=== PATIENT | female | born 1950 | race Caucasian/White ===

== ENCOUNTER 2017-05-30 01:32 | Emergency (ER) | payer MEDICARE, BC ==
[2017-05-30 01:52] VITALS: BP 148/95
--- NOTE | 2017-05-30 02:21 | EDM.PDOC ---
ED HPI GENERAL MEDICAL PROBLEM - General Chief Complaint: Chest Pain Stated Complaint: Chest pain Time Seen by Provider: 05/30/17 02:00 Source of Information: Reports: Patient, Family, RN History Limitations: Reports: No Limitations - History of Present Illness INITIAL COMMENTS - FREE TEXT/NARRATIVE: Patient presents to ER C/O chest pain around 1200 midnight tonight which she described as tightness in chest, radiating into throat region. She denies diaphoresis, SOB or cardiac risk factors eg HTn, Diabetes, Dyslipidemia. She indicates pain was 7/10. She indicates she has taken ASA at home. 20 mins after taking ASA minimal resolution, she therefore presents to ER for treatment. Onset: Today Onset Date: 05/30/17 Onset Time: 23:40 Duration: Resolved Prior to Arrival Location: Reports: Neck, Chest Quality: Reports: Burning, Pressure Severity: Moderate Improves with: Reports: Medication, Rest Worsens with: Reports: None Associated Symptoms: Reports: Chest Pain, Weakness, Other (Change in nighttime medication from Klonopin to Trazodone). Denies: Diaphoresis Treatments INSPECTOR INSULATION: Reports: Aspirin - Related Data Allergies Allergy/AdvReac Type Severity Reaction Status Date / Time No Known Allergies Allergy Verified 05/30/17 01:47 Home Meds: Home Meds Meloxicam [Meloxicam] 15 mg PO BEDTIME 05/30/17 [History] Oxybutynin 5 mg PO DAILY 05/30/17 [History] Pantoprazole [ProTONIX] 40 mg PO DAILY 05/30/17 [History] traZODone 50 mg PO BEDTIME 05/30/17 [History] Past Medical History HEENT History: Reports: None Cardiovascular History: Reports: Other (See Below) Other Cardiovascular History: 1st degree AV block Respiratory History: Reports: None Gastrointestinal History: Reports: Chronic Constipation, GERD, Other (See Below) Other Gastrointestinal History: esophageal ulcers Genitourinary History: Reports: Urinary Incontinence Musculoskeletal History: Reports: Arthritis, Fracture Neurological History: Reports: None Psychiatric History: Reports: Anxiety, Depression - Past Surgical History HEENT Surgical History: Reports: Tonsillectomy Cardiovascular Surgical History: Reports: None GI Surgical History: Reports: Colonoscopy, EGD, Polypectomy Female Surgical History: Reports: Other (See Below) Other Female Surgeries/Procedures: rectocele Musculoskeletal Surgical History: Reports: ORIF Social & Family History - Family History Family Medical History: Noncontributory - Tobacco Use Smoking Status *Q: Never Smoker - Caffeine Use Caffeine Use: Reports: Coffee - Recreational Drug Use Recreational Drug Use: No - Living Situation & Occupation Living situation: Reports: ED ROS GENERAL - Review of Systems Review Of Systems: See Below Constitutional: Reports: No Symptoms HEENT: Reports: No Symptoms Respiratory: Reports: No Symptoms Cardiovascular: Reports: Chest Pain, Other (1' AV block per patient-no treatment ). Denies: Blood Pressure Problem, Claudication, Dyspnea on Exertion, Edema, Lightheadedness, Palpitations, Syncope Endocrine: Reports: No Symptoms GI/Abdominal: Reports: Other (GERD) : Reports: Incontinence Musculoskeletal: Reports: Neck Pain, Joint Pain Skin: Reports: No Symptoms Neurological: Reports: No Symptoms Psychiatric: Reports: Anxiety, Depression ED EXAM, GENERAL - Physical Exam Exam: See Below Exam Limited By: Other (Hesitant at this time to have labs drawn as chest pain has resolved.) General Appearance: Alert, WD/WN, No Apparent Distress, Mild Distress, Other ( Requesting to go home without workup) Eye Exam: Bilateral Eye: Normal Fundi, Normal Inspection Ears: Normal External Exam Ear Exam: Bilateral Ear: Auricle Normal Nose: Normal Inspection Throat/Mouth: Normal Inspection Head: Atraumatic, Normocephalic Neck: Normal Inspection, Supple, Non-Tender, Full Range of Motion Respiratory/Chest: No Respiratory Distress, Lungs Clear, Normal Breath Sounds, No Accessory Muscle Use, Chest Non-Tender Cardiovascular: Normal Peripheral Pulses, Regular Rate, Rhythm, No Edema, No Gallop, No JVD, No Murmur Peripheral Pulses: 2+: Dorsalis Pedis (L), Dorsalis Pedis (R) GI/Abdominal: Non-Tender (Female) Exam: Deferred Rectal (Female) Exam: Deferred Back Exam: Full Range of Motion Extremities: Normal Inspection, Normal Range of Motion Neurological: Alert, Oriented, Normal Cognition, Normal Gait, No Motor/Sensory Deficits Psychiatric: Normal Affect, Anxious Skin Exam: Warm, Dry, Intact, Normal Color, No Rash Lymphatic: No Adenopathy Course - Vital Signs Last Recorded V/S: Last Vital Signs Temp 35.2 C 05/30/17 01:48 Pulse 81 05/30/17 01:48 Resp 16 05/30/17 01:48 BP 148/95 H 05/30/17 01:48 Pulse Ox 100 05/30/17 01:48 - Orders/Labs/Meds Orders: Active Orders 24 hr Category Date Time Status EKG Documentation Completion [RC] STAT Care 05/30/17 02:01 Active BASIC METABOLIC PANEL,BMP [CHEM] Stat Lab 05/30/17 02:02 Ordered CREATINE KINASE,CK [CHEM] Stat Lab 05/30/17 02:02 Ordered INR,PT,PROTHROMBIN TIME [COAG] Stat Lab 05/30/17 02:02 Ordered LACTATE DEHYDROGENASE,LDH [CHEM] Stat Lab 05/30/17 02:02 Ordered PTT,PARTIAL THROMBOPLSTIN TIME [COAG] Stat Lab 05/30/17 02:02 Ordered TROPONIN I [CHEM] Stat Lab 05/30/17 02:02 Ordered Labs: Laboratory Tests 05/30/17 Range/Units 02:05 WBC 4.6 L (5.0-10.0) 10^3/uL RBC 4.32 (4.00-5.50) 10^6/uL Hgb 13.2 (12.0-16.0) g/dL Hct 39.8 (37.0-47.0) % MCV 92.1 (82.0-94.0) fL MCH 30.6 (27.0-32.0) pg MCHC 33.2 (33.0-38.0) g/dL RDW Coeff of Charito 12.8 (11.0-15.0) % Plt Count 264 (150-400) 10^3/uL Neut % (Auto) 35.4 (35-85) % Lymph % (Auto) 51.6 (10-55) % Polk % (Auto) 10.2 (0-16) % Eos % (Auto) 2.4 (0-5) % Baso % (Auto) 0.4 (0-3) % Neut # (Auto) 1.63 L (1.80-7.00) 10^3/uL Lymph # (Auto) 2.38 (1.00-4.80) 10^3/uL Polk # (Auto) 0.47 (0.00-0.80) 10^3/uL Eos # (Auto) 0.11 (0.00-0.45) 10^3/uL Baso # (Auto) 0.02 10^3/uL Departure - Departure Time of Disposition: 02:33 Disposition: Home, Self-Care 01 Condition: Good Clinical Impression: Atypical chest pain, Anxiety, Chest pain Forms: ED Department Discharge - Problem List & Annotations (1) Anxiety SNOMED Code(s): 61113831 Code(s): F41.9 - ANXIETY DISORDER, UNSPECIFIED Status: Acute (2) Chest pain SNOMED Code(s): 69742855 Code(s): R07.9 - CHEST PAIN, UNSPECIFIED Status: Acute Priority: High Qualifiers: Ischemic chest pain type: unspecified angina pectoris type - Problem List Review Problem List Initiated/Reviewed/Updated: Yes - My Orders Last 24 Hours: My Active Orders 05/30/17 02:01 EKG Documentation Completion [RC] STAT 05/30/17 02:02 BASIC METABOLIC PANEL,BMP [CHEM] Stat CREATINE KINASE,CK [CHEM] Stat INR,PT,PROTHROMBIN TIME [COAG] Stat LACTATE DEHYDROGENASE,LDH [CHEM] Stat PTT,PARTIAL THROMBOPLSTIN TIME [COAG] Stat TROPONIN I [CHEM] Stat - Assessment/Plan Last 24 Hours: My Active Orders 05/30/17 02:01 EKG Documentation Completion [RC] STAT 05/30/17 02:02 BASIC METABOLIC PANEL,BMP [CHEM] Stat CREATINE KINASE,CK [CHEM] Stat INR,PT,PROTHROMBIN TIME [COAG] Stat LACTATE DEHYDROGENASE,LDH [CHEM] Stat PTT,PARTIAL THROMBOPLSTIN TIME [COAG] Stat TROPONIN I [CHEM] Stat Assessment:: Chest Pain limited with resolution prior to arriving at hospital Anxiety Depression Arthritis GERD Plan: Patient anxious to leave hospital-labs as noted. Discussed observation patient refuses therefore discharged stable condition to F /U immediately or call 911 for reoccurance of chest pain or pressure in chest. Advised F/U with PCP for work up-eg Thallium Treadmill and Cardiology consultation. Verbalizes understanding.
[2017-05-30 02:23] LABS: CHLORIDE,CL 106 mEq/L (98-106); SODIUM,NA 141 mEq/L (136-145)
== END 2017-05-30 02:39 | disposition home or self-care (01) ==
LOC: CC.ED 01:32
DX: R07.89 Other chest pain (principal); F41.9 Anxiety disorder, unspecified; F32.9 Major depressive disorder, single episode, unspecified; M19.90 Unspecified osteoarthritis, unspecified site; K21.9 Gastro-esophageal reflux disease without esophagitis; K59.09 Other constipation; Z79.899 Other long term (current) drug therapy; Z90.89 Acquired absence of other organs
CPT/HCPCS: 36415; 80048; 82550; 83615; 84484; 85025; 85610; 85730; 93005; 93010; 99284

== ENCOUNTER 2021-04-24 23:55 | Emergency (ER) | payer MEDICARE, BC ==
--- NOTE | 2021-04-25 00:24 | EDM.PDOC ---
ED HPI GENERAL MEDICAL PROBLEM - General Chief Complaint: General Stated Complaint: Fall. L Rib Pain Time Seen by Provider: 04/25/21 00:20 Source of Information: Reports: Patient History Limitations: Reports: No Limitations - History of Present Illness INITIAL COMMENTS - FREE TEXT/NARRATIVE: This patient is a 71 year old female patient that presents to the ER. Patient reports that she has Parkinsons and fell while walking this evening. Patient reports that she has left sided and left anterior chest pain with tenderness. She reports pain with taking big deep breaths. Patient reports she falls often. She reports her last fall was 5 days ago. Patient denies hitting her head this fall. She denies loc, n, v, vision changes. Onset: Today Onset Date: 04/25/21 Onset Time: 22:00 Location: Reports: Chest Front/Back Body Image: 1 - pain, tenderness Quality: Reports: Throbbing Severity: Mild Improves with: Reports: Immobilization Worsens with: Reports: Breathing, Movement Associated Symptoms: Reports: No Other Symptoms, Chest Pain. Denies: Confusion, Cough, cough w sputum, Diaphoresis, Fever/Chills, Headaches, Loss of Appetite, Malaise, Nausea/Vomiting, Rash, Seizure, Shortness of Breath, Syncope, Weakness l ribs Pain Score (Numeric/FACES): 6 - Related Data Allergies Allergy/AdvReac Type Severity Reaction Status Date / Time No Known Allergies Allergy Verified 04/25/21 00:02 Home Meds: Home Meds traZODone 50 mg PO BEDTIME 05/30/17 [History] Carbidopa/Levodopa [Carbidopa-Levo ER 25-100] 1 each PO DAILY 04/25/21 [History] Carbidopa/Levodopa [Carbidopa-Levodopa 25-100 Tab] 2 each PO TID 04/25/21 [History] ClonazePAM [KlonoPIN] 0.5 mg PO BEDTIME PRN 04/25/21 [History] Omeprazole 20 mg PO DAILY 04/25/21 [History] Pramipexole [Mirapex] 1 mg PO DAILY 04/25/21 [History] Sertraline [Zoloft] 50 mg PO DAILY 04/25/21 [History] Past Medical History HEENT History: Reports: None Cardiovascular History: Reports: Other (See Below) Other Cardiovascular History: 1st degree AV block Respiratory History: Reports: None Gastrointestinal History: Reports: Chronic Constipation, GERD, Other (See Below) Other Gastrointestinal History: esophageal ulcers Genitourinary History: Reports: Urinary Incontinence Musculoskeletal History: Reports: Arthritis, Fracture Neurological History: Reports: None Psychiatric History: Reports: Anxiety, Depression - Past Surgical History HEENT Surgical History: Reports: Tonsillectomy Cardiovascular Surgical History: Reports: None GI Surgical History: Reports: Colonoscopy, EGD, Polypectomy Female Surgical History: Reports: Other (See Below) Other Female Surgeries/Procedures: rectocele Musculoskeletal Surgical History: Reports: ORIF Social & Family History - Family History Family Medical History: No Pertinent Family History - Tobacco Use Tobacco Use Status *Q: Never Tobacco User Second Hand Smoke Exposure: No - Caffeine Use Caffeine Use: Reports: None - Recreational Drug Use Recreational Drug Use: No - Living Situation & Occupation Living situation: Reports: ED ROS GENERAL - Review of Systems Review Of Systems: See Below Constitutional: Reports: No Symptoms HEENT: Reports: No Symptoms Respiratory: Reports: Other (left sided chest pain). Denies: Shortness of Breath Cardiovascular: Reports: No Symptoms Endocrine: Reports: No Symptoms GI/Abdominal: Reports: No Symptoms : Reports: No Symptoms Musculoskeletal: Reports: No Symptoms Skin: Reports: No Symptoms Neurological: Reports: No Symptoms Psychiatric: Reports: No Symptoms Hematologic/Lymphatic: Reports: No Symptoms Immunologic: Reports: No Symptoms ED EXAM, GENERAL - Physical Exam Exam: See Below Exam Limited By: No Limitations General Appearance: Alert, WD/WN, No Apparent Distress Eye Exam: Bilateral Eye: EOMI, PERRL Ears: Normal External Exam, Normal Canal, Hearing Grossly Normal, Normal TMs Ear Exam: Bilateral Ear: Auricle Normal, Canal Normal, TM normal Nose: Normal Inspection, Normal Mucosa, No Blood Throat/Mouth: Normal Inspection, Normal Lips, Normal Teeth, Normal Gums, Normal Oropharynx, Normal Voice, No Airway Compromise Head: Atraumatic, Normocephalic Neck: Normal Inspection, Supple, Non-Tender, Full Range of Motion Respiratory/Chest: No Respiratory Distress, Lungs Clear, Normal Breath Sounds, No Accessory Muscle Use, Other (left lateral and left anterior chest pain over ribs 8-11. No flail chest. ). No: Decreased Breath Sounds, Accessory Muscle Use, Splinting Cardiovascular: Normal Peripheral Pulses, Regular Rate, Rhythm, No Edema, No Gallop, No JVD, No Murmur, No Rub Peripheral Pulses: 2+: Radial (L), Radial (R), Posterior Tibial (L), Posterior Tibial (R) GI/Abdominal: Normal Bowel Sounds, Soft, Non-Tender, No Organomegaly, No Distention, No Mass, Pelvis Stable (Female) Exam: Deferred Rectal (Female) Exam: Deferred Back Exam: Normal Inspection, Full Range of Motion. No: CVA Tenderness (L), CVA Tenderness (R), Decreased Range of Motion, Muscle Spasm, Paraspinal Tenderness, Vertebral Tenderness Extremities: Normal Inspection, Normal Range of Motion, Non-Tender, No Pedal Edema, Normal Capillary Refill Neurological: Alert, Oriented, Normal Cognition, No Motor/Sensory Deficits, Other (no tremors appreciated on exam) Psychiatric: Normal Affect, Normal Mood Skin Exam: Warm, Dry, Intact, Normal Color, No Rash, Ecchymosis (old, yellow h ealing ecchymosis left orbital superior and inferior. ) Lymphatic: No Adenopathy #1 Interpretation EKG Date: 04/25/21 Time: 01:18 Rhythm: NSR Rate (Beats/Min): 88 ST-T: Normal Course - Vital Signs Last Recorded V/S: Last Vital Signs Temp 97.8 F 04/24/21 23:57 Pulse 81 04/24/21 23:57 Resp 18 04/24/21 23:57 BP 173/102 H 04/24/21 23:57 Pulse Ox 95 04/24/21 23:57 - Orders/Labs/Meds Orders: Active Orders 24 hr Category Date Time Status Abdomen Pelvis w Cont [CT] Stat Exams 04/25/21 01:02 Taken Chest w Cont [CT] Stat Exams 04/25/21 01:02 Taken Ribs 2V w Chest Lt [CR] Stat Exams 04/25/21 00:01 Taken Sodium Chloride 0.9% [Normal Saline] 500 ml Med 04/25/21 01:45 Active IV .BOLUS Medication Orders Sodium Chloride (Normal Saline) 500 mls @ 1,000 mls/hr IV .BOLUS LILIANA Last Admin: 04/25/21 02:23 Dose: 1,000 mls/hr Documented by: CANDY Labs: Laboratory Tests 04/25/21 04/25/21 Range/Units 01:19 01:19 WBC 10.8 (4.0-11.0) 10^3/uL RBC 4.18 (4.00-5.50) x10^6/uL Hgb 12.6 (12.0-16.0) g/dL Hct 37.6 (37.0-47.0) % MCV 90.0 (83.0-97.0) fL MCH 30.1 (27.0-32.0) pg MCHC 33.5 (32.0-36.0) g/dL RDW Coeff of Charito 12.7 (11.0-15.0) % Plt Count 292 (150-400) 10^3/uL Immature Gran % (Auto) 0.2 (0.0-4.9) % Neut % (Auto) 80.9 H (41-71) % Lymph % (Auto) 11.7 L (24-44) % Avery % (Auto) 4.7 (0-10) % Eos % (Auto) 2.0 (0-6) % Baso % (Auto) 0.5 (0-1) % Neut # (Auto) 8.75 H (1.80-8.00) x10^3/uL Lymph # (Auto) 1.27 (0.60-5.00) 10^3/uL Avery # (Auto) 0.51 (0.00-1.50) 10^3/uL Eos # (Auto) 0.22 (0.00-1.50) 10^3/uL Baso # (Auto) 0.05 (0.00-0.50) 10^3/uL Immature Gran # (Auto) 0.02 (0.00-0.49) 10^3/uL Sodium 140 (136-145) mEq/L Potassium 3.9 (3.5-5.0) mEq/L Chloride 105 (98-106) mEq/L Carbon Dioxide 25 (21-32) mmol/L BUN 25 H (7-18) mg/dL Creatinine 0.7 (0.6-1.0) mg/dL Est Cr Clr Drug Dosing 59.21 mL/min Estimated GFR (MDRD) > 60 (>=60) mL/min Glucose 117 H (75-99) mg/dL Calcium 8.0 L (8.4-10.1) mg/dL Total Bilirubin 0.2 (0.0-1.0) mg/dL AST 22 (15-37) U/L ALT 9 L (12-78) U/L Alkaline Phosphatase 111 (46-116) U/L Lactate Dehydrogenase 201 H (100-190) U/L Creatine Kinase 189 (21-215) U/L Troponin I < 0.017 (0.00-0.06) ng/mL Total Protein 6.9 (6.4-8.2) g/dL Albumin 3.2 L (3.4-5.0) g/dL Meds: Medications Generic Name Dose Route Start Last Admin Trade Name Freq PRN Reason Stop Dose Admin Sodium Chloride 500 mls @ 1,000 mls/hr 04/25/21 01:45 04/25/21 02:23 Normal Saline IV 1,000 mls/hr .BOLUS LILIANA Administration Discontinued Medications Generic Name Dose Route Start Last Admin Trade Name Freq PRN Reason Stop Dose Admin Iopamidol 100 ml 04/25/21 01:16 04/25/21 01:58 Iopamidol 755 Mg/Ml 100 Ml Bottle IVPUSH 04/25/21 01:17 100 ml ONETIME ONE Administration - Radiology Interpretation Free Text/Narrative:: CXR: No hemo/pneumo seen. I do see probable 2 rib fractures,possible 4 total 8-11. Nondisplaced. CT Chest/Abd/Pelvis with contrast IV: No CT evidence for acute visceral or vascular injury to the chest, abdomen, or pelvis. Left pleural effusion is dependently layering and or water attenuation. Multiple acute appearing left- sided rib fractures, none of which appear to be significantly displaced. Moderate displacement of the left posterior-lateral ninth rib, others are nondisplaced and some are manifest as subtle cortical contour deformities without lucent fracture line. Involvement of the left fifth through 11th ribs. Subacute/healing right lateral rib fractures involving the third through seventh ribs laterally. Chronic appearing superior endplate depression of the T12 ve tebra. Mild posterior-superior retropulsion without significant canal stenosis. Thoracolumbar scoliosis. Degenerative subluxation of L4 on L5. No acute fracture of the spine or pelvis observed. 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 CT Results Date: 04/25/21 CT Results Time: 02:45 - Re-Assessments/Exams Free Text/Narrative Re-Assessment/Exam: 04/25/21 00:48 Patient continues to refuse pain medication. 04/25/21 01:24 Due to at least 2 rib fractures with fall, her age greater than 65 and Parkinsons hx, will CT chest. Due to its low in chest, will ct abd/pelvis as well. Explained to patient, she still refuses pain medication. 04/25/21 01:34 CR 0.74, will CT now. Will give fluid bolus of 500ml NS due to giving contrast IV. 04/25/21 03:10 I have called and discussed patient with Dr. Monika MUÑOZ MD at [facility]. He has accepted the patient. 04/25/21 03:15 I spoke to the patient and about all results and transfer. Initially, she is refusing. I explained all the risk associated with her injury including . I spent 20 minutes at bedside talking with this patient about the risk vs benefits of the transfer and the risk of AMA or no transfer. She would like to discuss with at bedside and then let me know. She still refuses pain medication even with pain 8/10. She reports out of fear constipation. I educated her on ways to reduce that risk of constipation, but she still refuses. 04/25/21 03:40 Patient reports now that after discussing with she will be transferred. Departure - Departure Time of Disposition: 04:09 Disposition: DC/Tfer to Acute Hospital 02 Condition: Fair Clinical Impression: Multiple rib fractures involving four or more ribs - Discharge Information *PRESCRIPTION DRUG MONITORING PROGRAM REVIEWED*: Not Applicable *COPY OF PRESCRIPTION DRUG MONITORING REPORT IN PATIENT GIO: Not Applicable Referrals: PCP,Unknown [Primary Care Provider] - Forms: ED Department Discharge Sepsis Event Note (ED) - Evaluation Sepsis Screening Result: No Definite Risk - Focused Exam Vital Signs: Vital Signs Temp Pulse Resp BP Pulse Ox 04/24/21 23:57 97.8 F 81 18 173/102 H 95 - My Orders Last 24 Hours: My Active Orders 04/25/21 00:01 Ribs 2V w Chest Lt [CR] Stat 04/25/21 01:02 Abdomen Pelvis w Cont [CT] Stat Chest w Cont [CT] Stat 04/25/21 01:45 Sodium Chloride 0.9% [Normal Saline] 500 ml IV .BOLUS - Assessment/Plan Last 24 Hours: My Active Orders 04/25/21 00:01 Ribs 2V w Chest Lt [CR] Stat 04/25/21 01:02 Abdomen Pelvis w Cont [CT] Stat Chest w Cont [CT] Stat 04/25/21 01:45 Sodium Chloride 0.9% [Normal Saline] 500 ml IV .BOLUS Plan: PLEASE SEE RN NOTE FOR PFSH The risk vs benefits explained to the patient and she has accepted. The risk of transfer are mvc, , worsening of pain, cardiac arrest. The risk of staying in [place] is , cardiac arrest, continued pain due to lack of block. The benefits of transfer are higher level of care, cardiothoracic trauma surgeon, trauma center. The benefits of staying in [place] is close to home.
[2021-04-25] MEDS ORDERED: Iopamidol 755 Mg/ML 100 ML Bottle IVPUSH ONE (01:16)
[2021-04-25 01:36] LABS: CHLORIDE,CL 105 mEq/L (98-106); SODIUM,NA 140 mEq/L (136-145)
[2021-04-25] MEDS ORDERED: Sodium Chloride 0.9% 500 ML IV SCH (01:45)
[2021-04-25 04:27] VITALS: BP 125/76; PULSE 88
== END 2021-04-25 05:34 ==
LOC: CC.ED 23:55
DX: S22.42XA Multiple fractures of ribs, left side, initial encounter for closed fracture (principal); G20 Parkinson's disease; K21.9 Gastro-esophageal reflux disease without esophagitis; Z79.899 Other long term (current) drug therapy; W19.XXXA Unspecified fall, initial encounter
CPT/HCPCS: 36415; 71101; 71260; 74177; 80053; 82550; 83615; 84484; 85025; 93005; 99284; 99285; J7040; Q9967

== ENCOUNTER 2023-02-13 18:05 | Emergency (ER) | payer MEDICARE, BC ==
[2023-02-13 18:15] VITALS: BP 140/78; PULSE 81
[2023-02-13] MEDS ORDERED: Lidocaine 1% 5 ML VIAL INJECT ONE (18:17)
[2023-02-13] MEDS ORDERED: Bacitracin/Neomycin/Polymyxin B Oint 0.9 GM U/D Packet TOP ONE (18:47)
== END 2023-02-13 19:04 | disposition home or self-care (01) ==
LOC: CC.ED 18:05
DX: S61.210A Laceration without foreign body of right index finger without damage to nail, initial encounter (principal); K21.9 Gastro-esophageal reflux disease without esophagitis; Z79.899 Other long term (current) drug therapy; X58.XXXA Exposure to other specified factors, initial encounter
CPT/HCPCS: 12002; 99282; 99283; A9270-GY; J3490

== ENCOUNTER 2024-12-04 18:36 | Emergency (ER) | payer MEDICARE, BC ==
[2024-12-04 18:41] VITALS: BP 139/86; PULSE 79
== END 2024-12-04 20:30 | disposition home or self-care (01) ==
LOC: CC.ED 18:36
DX: S01.01XA Laceration without foreign body of scalp, initial encounter (principal); Z79.899 Other long term (current) drug therapy; W18.11XA Fall from or off toilet without subsequent striking against object, initial encounter; Y93.89 Activity, other specified
CPT/HCPCS: 12002; 70450; 72125; 99283